=== PATIENT | male | born 1950 | race Caucasian/White ===

== ENCOUNTER 2017-01-05 14:27 | Emergency (ER) | payer SELFPAY ==
[2017-01-05 14:27] VITALS: BMI 29.2
--- NOTE | 2017-01-05 15:15 | ED PDOC ---
HPI: Hypertension/Hypotension Time Seen by Provider: 01/05/17 14:38 Chief Complaint (Nursing): High Blood Pressure Additional History Per: Patient (66 y/o male h/o HTN/DM here with right visual change x 3 months that made him nervous today at 9am. Patient denies any chest pain/sob. Forgot to take antihypertensive (clonidine 0.2mg) today. States he saw opthalmologist last week and was told he has catarracts in right eye. Denies any weakness in upper or lower extremities.) Past Medical History Reviewed: Historical Data, Nursing Documentation, Vital Signs Vital Signs: Last Vital Signs Temp 98.6 F 01/05/17 14:31 Pulse 108 H 01/05/17 14:31 Resp 19 01/05/17 14:31 BP 212/132 H 01/05/17 14:31 Pulse Ox 100 01/05/17 14:31 - Medical History PMH: Anxiety, Diabetes, HTN, TIA Denies: Atrial Fibrillation, CAD, Cardia Arrhythmia, CHF, HIV, Hypercholesterolemia, Hyperthyroidism, Hypothyroidism, Mitral Valve Prolapse, Peripheral Edema, Chronic Kidney Disease - Surgical History Surgical History: Denies: Pacemaker - Family History Family History: States: Unknown Family Hx - Immunization History Hx Tetanus Toxoid Vaccination: No Hx Influenza Vaccination: No Hx Pneumococcal Vaccination: No - Home Medications Home Medications: Ambulatory Orders Medication Instructions Recorded Aspirin [Aspirin Chewable] 81 mg PO DAILY #0 chew 03/25/16 Atorvastatin [Lipitor] 20 mg PO HS #0 tab 03/25/16 GlipiZIDE [Glipizide] 10 mg PO DAILY #20 tab 03/25/16 SITagliptin [Januvia] 100 mg PO DAILY #20 tab 03/25/16 amLODIPine [Norvasc] 10 mg PO DAILY #20 tab 03/25/16 cloNIDine [Catapres] 0.2 mg PO TID #60 03/25/16 metFORMIN [glucOPHAGE] 500 mg PO BID #40 03/25/16 - Allergies Allergies/Adverse Reactions: Allergies Allergy/AdvReac Type Severity Reaction Status Date / Time No Known Allergies Allergy Verified 04/22/15 07:36 Review of Systems ROS Statement: Except As Marked, All Systems Reviewed And Found Negative Physical Exam - Reviewed Nursing Documentation Reviewed: Yes Vital Signs Reviewed: Yes - Physical Exam Appears: Positive for: Well, Non-toxic, No Acute Distress Head Exam: Positive for: ATRAUMATIC, NORMAL INSPECTION, NORMOCEPHALIC Skin: Positive for: Normal Color, Warm, DRY Eye Exam: Positive for: EOMI, Normal appearance, PERRL ENT: Positive for: Normal ENT Inspection Neck: Positive for: Normal, Painless ROM Cardiovascular/Chest: Positive for: Regular Rate, Rhythm Respiratory: Positive for: CNT, Normal Breath Sounds Gastrointestinal/Abdominal: Positive for: Normal Exam, Bowel Sounds, Soft Back: Positive for: Normal Inspection Extremity: Positive for: Normal ROM Neurologic/Psych: Positive for: Alert, Oriented - Laboratory Results Result Diagrams: 01/05/17 15:58 01/05/17 15:58 - ECG O2 Sat by Pulse Oximetry: 100 - Progress ED Course And Treament: REVIEW OF OLD RECORDS DEMONSTRATES OLD INFARCT [place] ON MRI EKG: NSR 96BPM T WAVE INVERSION AVL AND V6 SIMILAR TO OLD EKG CLONIDINE 0.2 MG ATIVAN 0.5 MG IV X 1 DOSE REPEAT BP 207/130 LABETOLOL 20 MG IV X1 DOSE GIVEN. REPEAT BP 155/90 D/W DR. GLASS FOR ADMISSION AND POSSIBLE MRI. UPON RE-EVALUATION, PATIENT'S FAMILY DISCLOSES PATIENT WAS ANXIOUS TODAY B/C OF COST OF POSSIBLE CATARRACT SURGERY AND CAME TO ED HOPING TO HAVE EYE SURGERY DONE. D/W PATIENT F/U OUTPATIENT WITH OPHTHALMOLOGY FOR MANAGEMENT OF SURGERY. WILL GIVE PHONE NUMBER FOR [facility]. PATIENT ADVISED COMPLIANCE OF BP MEDICATIONS. Disposition - Clinical Impression Clinical Impression: Hypertension, Cataract - Patient ED Disposition Is Patient to be Admitted: No - Disposition Disposition: Routine/Home Disposition Time: 19:04 Condition: FAIR Additional Instructions: NEENA JERE [facility] [phone] [place] [address] ([facility]) Instructions: Cataracts (ED), Hypertension (DC) Print Language: HEBREW
--- NOTE | 2017-01-05 15:21 | RAD ---
HISTORY: routine COMPARISON: Chest x-ray performed 03/23/16 TECHNIQUE: Chest, one view. FINDINGS: Examination limited by habitus. LUNGS: No focal consolidation. Please note that chest x-ray has limited sensitivity for the detection of pulmonary masses. PLEURA: No significant pleural effusion identified. No definite pneumothorax . CARDIOVASCULAR: Heart size appears within normal limits. Atherosclerotic calcifications of the aorta. OSSEOUS STRUCTURES: No acute osseous abnormality is detected. VISUALIZED UPPER ABDOMEN: Unremarkable. OTHER FINDINGS: None. IMPRESSION: No focal consolidation, significant pleural effusion, or definite pneumothorax identified.
[2017-01-05 15:38] VITALS: TEMP 98
[2017-01-05] MEDS ORDERED: Labetalol 5 mg/ml Inj 20ML IVP STA (16:12)
[2017-01-05 16:15] LABS: BASO % 0.7 % (0.0-2.0); EOS # 0.1 K/uL (0.0-0.7); EOS % 1.2 % (0.0-4.0); HEMOGLOBIN 16.2 g/dL (12.0-18.0); LYMPH # 2.1 K/uL (1.0-4.3); LYMPH % 41.7 % (20.0-40.0); MEAN CELL VOLUME 78.5 fl (80.0-94.0); MEAN CORPUSCULAR HEMOGLOBIN 25.7 pg (27.0-31.0); MEAN CORPUSCULAR HGB CONC 32.7 g/dL (33.0-37.0); MONO # 0.4 K/uL (0.0-0.8); MONO % 7.8 % (0.0-10.0); NEUT # 2.5 K/uL (1.8-7.0); NEUT % 48.6 % (50.0-75.0); NRBC % 0.1 % (0.0-0.0); RBC 6.29 Mil/uL (4.40-5.90); RED CELL DISTRIBUTION WIDTH 14.7 % (11.5-14.5)
[2017-01-05 16:20] LABS: ALB/GLOB RATIO 1.2 (1.0-2.1); ALBUMIN 4.4 g/dL (3.5-5.0); ALT/SGPT 37 U/L (21-72); AST/SGOT 23 U/L (17-59); BLOOD UREA NITROGEN 18 mg/dl (9-20); CALCIUM 9.7 mg/dL (8.4-10.2); GFR AFRICAN-AMERICAN > 60; GFR NON-AFRICAN AMERICAN > 60
--- NOTE | 2017-01-05 16:21 | CT ---
PROCEDURE: CT HEAD WITHOUT CONTRAST. HISTORY: visual disturbance COMPARISON: Noncontrast head CT performed 03/23/16 TECHNIQUE: Axial computed tomography images were obtained through the head/brain without intravenous contrast. Radiation dose: Total exam DLP = 920.17 mGy-cm. This CT exam was performed using one or more of the following dose reduction techniques: Automated exposure control, adjustment of the mA and/or kV according to patient size, and/or use of iterative reconstruction technique. FINDINGS: HEMORRHAGE: No intracranial hemorrhage. BRAIN: Diffuse atrophy with prominence of the ventricles and sulci noted. No mass effect or edema. Dense intracranial atherosclerosis. 5 mm chronic appearing right basal ganglia lacunar infarct. Scattered periventricular and subcortical white matter hypodensities, which are nonspecific, but often seen with chronic microvascular ischemic disease. Please note that MRI with diffusion imaging is more sensitive in the detection of acute ischemic event. VENTRICLES: No hydrocephalus. CALVARIUM: Unremarkable. PARANASAL SINUSES: Unremarkable as visualized. No significant inflammatory changes. MASTOID AIR CELLS: Unremarkable as visualized. No inflammatory changes. OTHER FINDINGS: None. IMPRESSION: Nonspecific white matter changes. 5 mm chronic appearing right basal ganglia lacunar infarct. Generalized atrophy.
--- NOTE | 2017-01-05 18:32 | CP.PCM.CON ---
History of Present Illness - History of Present Illness History of Present Illness: Reason for Consult: visual changes and hypertension CC: came in because I was nervous HPI: 66 year old male PMH HTN, DMII, GI bleed, peptic ulcer, TIA?, presents after a 4 month history of R visual changes over which he became very nervous this morning. He saw his opthalmologist (brought paperwork) 6 days ago, who informed the patient he would need surgery for diabetic retinopathy. The patient states he is nervous because he does not have insurance and because the surgery is expensive so he came to the hospital. This patient is also known to be noncompliant with his Clonidine which he did not take this morning, and had rebound HTN which was then controlled in the ER with Clonidine his home med and labetalol. Patient was advised to continue his home meds, and to follow up with his printed circuit photographer after his insurance is established. ROS: per HPI, all other systems neg by me PMSH: HTN, DM II, GIB, PEPTIC ULCER, TIA? FH: denies SH: denies tobacco, ETOH, IVDU NKDA EXAM vitals reviewed, bp now stable GEN: WDWN, ALERT COOPERATIVE HEENT: NCAT PERRL EOMI HEART: S1S2 RRR LUNG CTAB NO WRR ABD SOFT NT ND NO MAS NO HSM EXT WARM WELL PERFUSED NEURO AAOX3, STRENGTH EQUAL AND BILATERAL SKIN WARM DRY 01/05/17 15:58 01/05/17 15:58 ASSESSMENT AND PLAN 66 year old male PMH HTN, DMII, GI bleed, peptic ulcer, TIA?, presents after a 4 month history of R visual changes over which he became very nervous this morning. He saw his opthalmologist (brought paperwork) 6 days ago, who informed the patient he would need surgery for diabetic retinopathy. The patient states he is nervous because he does not have insurance and because the surgery is expensive so he came to the hospital. This patient is also known to be noncompliant with his Clonidine which he did not take this morning, and had rebound HTN which was then controlled in the ER with Clonidine his home med and labetalol. Patient was advised to continue his home meds, and to follow up with his printed circuit photographer after his insurance is established. Patient medically stable to be discharged home with extensive counseling on medication compliance as well as counseling on close follow up with [employer] as an outpatient. Past Patient History - Infectious Disease Hx of Infectious Diseases: None - Tetanus Immunizations Tetanus Immunization: Unknown - Past Medical History & Family History Past Medical History?: Yes - Past Social History Smoking Status: Never Smoked - CARDIAC Hx Atrial Fibrillation: No Hx Cardia Arrhythmia: No Hx Congestive Heart Failure: No Hx Hypercholesterolemia: No Hx Hypertension: Yes Hx Mitral Valve Prolapse: No Hx Pacemaker: No Hx Peripheral Edema: No - PULMONARY Hx Respiratory Disorders: No - NEUROLOGICAL Hx Transient Ischemic Attacks (TIA): Yes - HEENT Hx HEENT Problems: No - RENAL Hx Chronic Kidney Disease: No - ENDOCRINE/METABOLIC Hx Hyperthyroidism: No Hx Hypothyroidism: No - HEMATOLOGICAL/ONCOLOGICAL Hx Human Immunodeficiency Virus (HIV): No - INTEGUMENTARY Hx Dermatological Problems: No - MUSCULOSKELETAL/RHEUMATOLOGICAL Hx Musculoskeletal Disorders: No Hx Falls: No - GASTROINTESTINAL Hx Ulcer: Yes Hx Vomiting: Yes Other/Comment: GI bleed, 03/2015 - GENITOURINARY/GYNECOLOGICAL Hx Genitourinary Disorders: No - PSYCHIATRIC Hx Anxiety: Yes - SURGICAL HISTORY Hx Surgeries: No - ANESTHESIA Hx Anesthesia: Yes Hx Anesthesia Reactions: No Hx Malignant Hyperthermia: No Meds Allergies/Adverse Reactions: Allergies Allergy/AdvReac Type Severity Reaction Status Date / Time No Known Allergies Allergy Verified 04/22/15 07:36 Results - Vital Signs Recent Vital Signs: Last Vital Signs Temp 98 F 01/05/17 15:31 Pulse 87 01/05/17 17:52 Resp 18 01/05/17 17:52 BP 159/96 H 01/05/17 17:52 Pulse Ox 99 01/05/17 17:52 - Labs Result Diagrams: 01/05/17 15:58 01/05/17 15:58 Labs: Laboratory Results - last 24 hr 01/05/17 01/05/17 15:58 15:58 WBC 5.0 RBC 6.29 H Hgb 16.2 Hct 49.4 MCV 78.5 L D MCH 25.7 L MCHC 32.7 L RDW 14.7 H Plt Count 214 MPV 10.0 Neut % (Auto) 48.6 L Lymph % (Auto) 41.7 H [place] % (Auto) 7.8 Eos % (Auto) 1.2 Baso % (Auto) 0.7 Neut # 2.5 Lymph # 2.1 [place] # 0.4 Eos # 0.1 Baso # 0.0 Sodium 140 Potassium 4.9 Chloride 105 Carbon Dioxide 23 Anion Gap 17 BUN 18 Creatinine 1.0 Est GFR ( Amer) > 60 Est GFR (Non-Af Amer) > 60 Random Glucose 116 H Calcium 9.7 Total Bilirubin 0.6 AST 23 ALT 37 Alkaline Phosphatase 79 Troponin I < 0.0120 Total Protein 8.0 Albumin 4.4 Globulin 3.7 Albumin/Globulin Ratio 1.2
[2017-01-05 19:21] LABS: SQUAMOUS EPITHIAL < 1 /hpf (0-5); URINE BILIRUBIN NEGATIVE (NEGATIVE); URINE BLOOD NEGATIVE (NEGATIVE); URINE CLARITY CLEAR (Clear); URINE COLOR YELLOW (YELLOW); URINE GLUCOSE (UA) NEG (Normal); URINE LEUKOCYTE ESTERASE NEG Leu/uL (Negative); URINE NITRATE NEGATIVE (NEGATIVE); URINE PROTEIN 100 mg/dL (NEGATIVE); URINE UROBILINOGEN 0.2-1.0 mg/dL (0.2-1.0)
[2017-01-05 19:27] VITALS: BP 153/101; PULSE 92; RESP 16; O2SAT 99
--- NOTE | 2017-01-06 23:40 | CARD ---
APPROVED REPORT EKG Measurement Heart [id number] NM [id number] [id number] <Conclusion> Normal sinus rhythm Possible Left atrial enlargement Nonspecific T wave abnormality Abnormal ECG
== END 2017-01-05 19:28 | disposition home or self-care (01) ==
LOC: H.ER 14:27
DX: I10 Essential (primary) hypertension (principal); H25.10 Age-related nuclear cataract, unspecified eye; E11.9 Type 2 diabetes mellitus without complications; Z86.73 Personal history of transient ischemic attack (TIA), and cerebral infarction without residual deficits
CPT/HCPCS: 70450; 71010; 80053; 81003; 82948; 84484; 85025; 93005; 96374; 96375; 99285; J2060

== ENCOUNTER 2017-08-14 09:55 | Emergency (ER) | payer MEDICAID ==
[2017-08-14 09:55] VITALS: BMI 29.2
--- NOTE | 2017-08-14 11:19 | ED PDOC ---
HPI: Hypertension/Hypotension Time Seen by Provider: 08/14/17 10:18 Chief Complaint (Nursing): High Blood Pressure Chief Complaint (Provider): High blood pressure History Per: Patient History/Exam Limitations: no limitations Onset/Duration Of Symptoms: Hrs (this morning) Current Symptoms Are (Timing): Still Present Associated Symptoms: denies: Chest Pain, Headache, Other (palpitations, SOB,) Additional Complaint(s): Ramon Tai is a 66 year old male, with a past medical history of hypertension and diabetes, who presents to the emergency department for elevated blood pressure onset since this morning. Patient states he took blood pressure medications as normal. He denies any chest pain, palpitations, shortness of breath, headache or dizziness. No further medical complaints. PMD: Chad Coleman Past Medical History Reviewed: Historical Data, Nursing Documentation, Vital Signs Vital Signs: Last Vital Signs Temp 98 F 08/14/17 10:11 Pulse 94 H 08/14/17 10:31 Resp 18 08/14/17 10:11 BP 235/122 H 08/14/17 10:31 Pulse Ox 100 08/14/17 10:11 - Medical History PMH: Anxiety, Diabetes, HTN, TIA Denies: Atrial Fibrillation, CAD, Cardia Arrhythmia, CHF, HIV, Hypercholesterolemia, Hyperthyroidism, Hypothyroidism, Mitral Valve Prolapse, Peripheral Edema, Chronic Kidney Disease - Surgical History Surgical History: No Surg Hx Denies: Pacemaker - Family History Family History: States: Unknown Family Hx - Social History Current smoker - smoking cessation education provided: No Alcohol: None Drugs: Denies - Immunization History Hx Tetanus Toxoid Vaccination: No Hx Influenza Vaccination: No Hx Pneumococcal Vaccination: No - Home Medications Home Medications: Ambulatory Orders Medication Instructions Recorded Aspirin [Aspirin Chewable] 81 mg PO DAILY #0 chew 03/25/16 Atorvastatin [Lipitor] 20 mg PO HS #0 tab 03/25/16 GlipiZIDE [Glipizide] 10 mg PO DAILY #20 tab 03/25/16 SITagliptin [Januvia] 100 mg PO DAILY #20 tab 03/25/16 amLODIPine [Norvasc] 10 mg PO DAILY #20 tab 03/25/16 cloNIDine [Catapres] 0.2 mg PO TID #60 03/25/16 metFORMIN [glucOPHAGE] 500 mg PO BID #40 03/25/16 - Allergies Allergies/Adverse Reactions: Allergies Allergy/AdvReac Type Severity Reaction Status Date / Time No Known Allergies Allergy Verified 04/22/15 07:36 Review of Systems ROS Statement: Except As Marked, All Systems Reviewed And Found Negative Constitutional: Positive for: Other (elevated blood pressure) Cardiovascular: Negative for: Chest Pain, Palpitations Respiratory: Negative for: Shortness of Breath Neurological: Negative for: Headache, Dizziness Physical Exam - Reviewed Nursing Documentation Reviewed: Yes Vital Signs Reviewed: Yes - Physical Exam Appears: Positive for: Non-toxic, No Acute Distress Head Exam: Positive for: ATRAUMATIC, NORMAL INSPECTION, NORMOCEPHALIC Skin: Positive for: Normal Color, Warm, Dry Eye Exam: Positive for: Normal appearance, EOMI, PERRL Neck: Positive for: Painless ROM, Supple Cardiovascular/Chest: Positive for: Regular Rate, Rhythm. Negative for: Murmur Respiratory: Positive for: Normal Breath Sounds (clear b/l). Negative for: Respiratory Distress Gastrointestinal/Abdominal: Positive for: Normal Exam, Soft. Negative for: Tenderness, Guarding, Rebound Back: Positive for: Normal Inspection. Negative for: L CVA Tenderness, R CVA Tenderness, Vertebral Tenderness Extremity: Positive for: Normal ROM. Negative for: Tenderness, Calf Tenderness , Deformity, Swelling Neurologic/Psych: Positive for: Alert, Oriented (x3). Negative for: Motor/ Sensory Deficits, Other (no focal deficits.) - ECG O2 Sat by Pulse Oximetry: 100 (RA) Pulse Ox Interpretation: Normal Medical Decision Making Medical Decision Making: Initial Plan: --EKG --Catapres 0.2 mg PO --Reevaluation Scribe Attestation: Documented by Jude Jeffrey, acting as a scribe for Clifton Mayer MD Provider Scribe Attestation: All medical record entries made by the Scribe were at my direction and personally dictated by me. I have reviewed the chart and agree that the record accurately reflects my personal performance of the history, physical exam, medical decision making, and the department course for this patient. I have also personally directed, reviewed, and agree with the discharge instructions and disposition. Disposition - Clinical Impression Clinical Impression: Hypertension - Patient ED Disposition Is Patient to be Admitted: No Counseled Patient/Family Regarding: Diagnosis, Need For Followup - Disposition Referrals: Chad Coleman MD [Staff Provider] - Disposition: Routine/Home Disposition Time: 14:25 Condition: FAIR Instructions: High Blood Pressure in Adults Forms: [facility] (Belizean) Print Language: THAI
[2017-08-14 13:45] VITALS: PULSE 80; RESP 16; TEMP 98.4
[2017-08-14 15:08] VITALS: BP 140/90; O2SAT 99
--- NOTE | 2017-08-15 23:49 | CARD ---
APPROVED REPORT EKG Measurement Heart [id number] 140P74 [id number] <Conclusion> Sinus rhythm with occasional premature ventricular complexes Possible Left atrial enlargement Nonspecific T wave abnormality Abnormal ECG
== END 2017-08-14 15:08 | disposition home or self-care (01) ==
LOC: H.ER 09:55
DX: I10 Essential (primary) hypertension (principal); E11.9 Type 2 diabetes mellitus without complications; F41.9 Anxiety disorder, unspecified; Z79.84 Long term (current) use of oral hypoglycemic drugs; Z86.73 Personal history of transient ischemic attack (TIA), and cerebral infarction without residual deficits

== ENCOUNTER 2017-08-14 15:28 | Emergency (ER) | payer MEDICAID ==
[2017-08-14 15:29] VITALS: BMI 29.2
[2017-08-14 15:36] VITALS: O2SAT 98
[2017-08-14 16:53] LABS: BASO # 0.1 K/uL (0.0-0.2); EOS # 0.1 K/uL (0.0-0.7); EOS % 1.2 % (0.0-4.0); LYMPH # 1.8 K/uL (1.0-4.3); LYMPH % 32.4 % (20.0-40.0); MEAN CELL VOLUME 74.9 fl (80.0-94.0); MEAN CORPUSCULAR HEMOGLOBIN 24.1 pg (27.0-31.0); MEAN CORPUSCULAR HGB CONC 32.2 g/dL (33.0-37.0); MEAN PLATELET VOLUME 9.8 fl (7.2-11.7); MONO # 0.5 K/uL (0.0-0.8); MONO % 9.5 % (0.0-10.0); NEUT % 55.9 % (50.0-75.0); RBC 6.24 Mil/uL (4.40-5.90); RED CELL DISTRIBUTION WIDTH 16.7 % (11.5-14.5); WHITE BLOOD COUNT 5.4 K/uL (4.8-10.8)
--- NOTE | 2017-08-14 16:56 | ED PDOC ---
HPI: Hypertension/Hypotension Time Seen by Provider: 08/14/17 15:30 Chief Complaint (Nursing): Weakness/Neurological Deficit Chief Complaint (Provider): Weakness/neurological deficit History Per: Patient History/Exam Limitations: no limitations Onset/Duration Of Symptoms: Hrs (today) Current Symptoms Are (Timing): Gone Now Associated Symptoms: Blurred Vision, Other (generalized weakness. ) Additional Complaint(s): Ramon Tai is a 66 year old male, with a past medical history of hypertension and diabetes, who presents to the emergency department after he was just discharged this afternoon from here for hypertension. Patient states as soon as he left, he began having blurry vision but has now resolved. He denies any fever , chills, nausea, vomit, diarrhea or other medical complaints. PMD: None provided. Past Medical History Reviewed: Historical Data, Nursing Documentation, Vital Signs Vital Signs: Last Vital Signs Temp 98.7 F 08/14/17 15:33 Pulse 105 H 08/14/17 15:33 Resp 16 08/14/17 15:33 BP 143/83 08/14/17 15:33 Pulse Ox 98 08/14/17 15:33 - Medical History PMH: Anxiety, Diabetes, HTN, TIA Denies: Atrial Fibrillation, CAD, Cardia Arrhythmia, CHF, HIV, Hypercholesterolemia, Hyperthyroidism, Hypothyroidism, Mitral Valve Prolapse, Peripheral Edema, Chronic Kidney Disease - Surgical History Surgical History: No Surg Hx Denies: Pacemaker - Family History Family History: States: Unknown Family Hx - Social History Current smoker - smoking cessation education provided: No Alcohol: None Drugs: Denies - Immunization History Hx Tetanus Toxoid Vaccination: No Hx Influenza Vaccination: No Hx Pneumococcal Vaccination: No - Home Medications Home Medications: Ambulatory Orders Medication Instructions Recorded Aspirin [Aspirin Chewable] 81 mg PO DAILY #0 chew 03/25/16 Atorvastatin [Lipitor] 20 mg PO HS #0 tab 03/25/16 GlipiZIDE [Glipizide] 10 mg PO DAILY #20 tab 03/25/16 SITagliptin [Januvia] 100 mg PO DAILY #20 tab 03/25/16 amLODIPine [Norvasc] 10 mg PO DAILY #20 tab 03/25/16 cloNIDine [Catapres] 0.2 mg PO TID #60 03/25/16 metFORMIN [glucOPHAGE] 500 mg PO BID #40 03/25/16 - Allergies Allergies/Adverse Reactions: Allergies Allergy/AdvReac Type Severity Reaction Status Date / Time No Known Allergies Allergy Verified 08/14/17 15:33 Review of Systems ROS Statement: Except As Marked, All Systems Reviewed And Found Negative Constitutional: Negative for: Fever, Chills Eyes: Positive for: Vision Change (blurry vision) Gastrointestinal: Negative for: Nausea, Vomiting, Diarrhea Physical Exam - Reviewed Nursing Documentation Reviewed: Yes Vital Signs Reviewed: Yes - Physical Exam Appears: Positive for: Well, Non-toxic, No Acute Distress Head Exam: Positive for: ATRAUMATIC, NORMAL INSPECTION, NORMOCEPHALIC Skin: Positive for: Normal Color, Warm, Dry Eye Exam: Positive for: Normal appearance, EOMI, PERRL Neck: Positive for: Painless ROM, Supple Cardiovascular/Chest: Positive for: Regular Rate, Rhythm. Negative for: Murmur Respiratory: Positive for: Normal Breath Sounds (clear b/l). Negative for: Respiratory Distress Gastrointestinal/Abdominal: Positive for: Normal Exam, Soft. Negative for: Tenderness, Guarding, Rebound Back: Positive for: Normal Inspection. Negative for: L CVA Tenderness, R CVA Tenderness, Vertebral Tenderness Extremity: Positive for: Normal ROM (full ROM on all extremities). Negative for : Tenderness, Deformity, Swelling Neurologic/Psych: Positive for: Alert, Oriented (x3). Negative for: Motor/ Sensory Deficits - Laboratory Results Result Diagrams: 08/14/17 16:44 08/14/17 16:44 - ECG O2 Sat by Pulse Oximetry: 98 (RA) Pulse Ox Interpretation: Normal Medical Decision Making Medical Decision Making: Initial Impression: hypertension Initial Plan: --Head w/o contrast [CT] --CMP --CBC w/ differential --Reevaluation Time: 17:05 CT HEAD FINDINGS: HEMORRHAGE: No intracranial hemorrhage. BRAIN: No mass effect or edema. Mild cerebral atrophy. Mild chronic periventricular white matter microvascular ischemic changes. Lacunar infarctions in the genu of the right internal capsule and right thalamus. VENTRICLES: Unremarkable. No hydrocephalus. CALVARIUM: Unremarkable. PARANASAL SINUSES: Leftward nasal septal deviation. Unremarkable as visualized. No significant inflammatory changes. MASTOID AIR CELLS: Unremarkable as visualized. No inflammatory changes. OTHER FINDINGS: None. IMPRESSION: No acute intracranial pathology. Time: 19:05 Upon provider reevaluation patient feels better and visual acuity was assessed as normal. Labs were reviewed and patient was made aware that blood sugar is high and will take medication at home. BP is stable. Counseling was provided and all questions were answered regarding diagnosis and need for follow up with PMD in 1-2 days for reevaluation. There is agreement to discharge plan. Return if symptoms persist or worsen. Scribe Attestation: Documented by Jude Jeffrey and Lawrence Eddy, acting as scribes for Jose Delacruz MD. Provider Scribe Attestation: All medical record entries made by the Scribe were at my direction and personally dictated by me. I have reviewed the chart and agree that the record accurately reflects my personal performance of the history, physical exam, medical decision making, and the department course for this patient. I have also personally directed, reviewed, and agree with the discharge instructions and disposition. Disposition - Clinical Impression Clinical Impression: Hypertension - Patient ED Disposition Is Patient to be Admitted: No Counseled Patient/Family Regarding: Studies Performed, Diagnosis, Need For Followup - Disposition Disposition: Routine/Home Disposition Time: 17:35 Condition: IMPROVED Additional Instructions: follow up with your primary doctor in 1-2 days return to the ED with any worsening or concerning symptoms Instructions: High Blood Pressure (DC) Forms: [facility] [employer] (Romanian) Print Language: VATICAN CITIZEN
[2017-08-14 17:01] LABS: CALCIUM 9.2 mg/dL (8.4-10.2); GFR AFRICAN-AMERICAN > 60; GFR NON-AFRICAN AMERICAN > 60
--- NOTE | 2017-08-14 17:06 | CT ---
PROCEDURE: CT HEAD WITHOUT CONTRAST. HISTORY: headache COMPARISON: CT head dated 01/05/2017. TECHNIQUE: Axial computed tomography images were obtained through the head/brain without intravenous contrast. Radiation dose: Total exam DLP = 927.2 mGy-cm. This CT exam was performed using one or more of the following dose reduction techniques: Automated exposure control, adjustment of the mA and/or kV according to patient size, and/or use of iterative reconstruction technique. FINDINGS: HEMORRHAGE: No intracranial hemorrhage. BRAIN: No mass effect or edema. Mild cerebral atrophy. Mild chronic periventricular white matter microvascular ischemic changes. Lacunar infarctions in the genu of the right internal capsule and right thalamus. VENTRICLES: Unremarkable. No hydrocephalus. CALVARIUM: Unremarkable. PARANASAL SINUSES: Leftward nasal septal deviation. Unremarkable as visualized. No significant inflammatory changes. MASTOID AIR CELLS: Unremarkable as visualized. No inflammatory changes. OTHER FINDINGS: None. IMPRESSION: No acute intracranial pathology.
[2017-08-14 17:34] LABS: ALB/GLOB RATIO 1.1 (1.0-2.1); ALBUMIN 3.9 g/dL (3.5-5.0); ALT/SGPT 12 U/L (21-72); AST/SGOT 42 U/L (17-59); BLOOD UREA NITROGEN 17 mg/dl (9-20)
[2017-08-14 19:18] VITALS: BP 134/90; PULSE 70; RESP 18; TEMP 98
== END 2017-08-14 19:19 | disposition home or self-care (01) ==
LOC: H.ER 15:28
DX: I10 Essential (primary) hypertension (principal); E11.9 Type 2 diabetes mellitus without complications; F41.9 Anxiety disorder, unspecified; Z79.82 Long term (current) use of aspirin; Z79.84 Long term (current) use of oral hypoglycemic drugs; Z86.73 Personal history of transient ischemic attack (TIA), and cerebral infarction without residual deficits

== ENCOUNTER 2017-12-02 12:50 | Observation (INO) | payer MEDICAID ==
[2017-12-02 12:50] VITALS: BMI 29.2
[2017-12-02] MEDS ORDERED: Labetalol 5 mg/ml Inj 20ML IVP STA (13:30)
[2017-12-02 13:57] LABS: BASO % 0.3 % (0.0-2.0); EOS # 0.1 K/uL (0.0-0.7); EOS % 0.7 % (0.0-4.0); HEMOGLOBIN 15.3 g/dL (12.0-18.0); LYMPH # 1.4 K/uL (1.0-4.3); LYMPH % 17.9 % (20.0-40.0); MEAN CELL VOLUME 78.8 fl (80.0-94.0); MEAN CORPUSCULAR HEMOGLOBIN 25.5 pg (27.0-31.0); MEAN CORPUSCULAR HGB CONC 32.4 g/dL (33.0-37.0); MEAN PLATELET VOLUME 10.2 fl (7.2-11.7); MONO # 0.3 K/uL (0.0-0.8); MONO % 4.3 % (0.0-10.0); NEUT # 6.1 K/uL (1.8-7.0); NEUT % 76.8 % (50.0-75.0); RBC 6.01 Mil/uL (4.40-5.90); RED CELL DISTRIBUTION WIDTH 14.7 % (11.5-14.5); WHITE BLOOD COUNT 7.9 K/uL (4.8-10.8)
[2017-12-02 14:07] LABS: ALB/GLOB RATIO 1.4 (1.0-2.1); ALBUMIN 4.3 g/dL (3.5-5.0); ALT/SGPT 31 U/L (21-72); AST/SGOT 18 U/L (17-59); BLOOD UREA NITROGEN 15 mg/dl (9-20); CALCIUM 9.4 mg/dL (8.4-10.2); GFR AFRICAN-AMERICAN > 60; GFR NON-AFRICAN AMERICAN > 60
--- NOTE | 2017-12-02 14:21 | ED PDOC ---
HPI: Hypertension/Hypotension History Per: Patient History/Exam Limitations: no limitations Onset/Duration Of Symptoms: Hrs Current Symptoms Are (Timing): Gone Now Additional Complaint(s): 67 y/o male with PMHx of HTN, and DM type 2 presents to ED via EMS with elevated BP. Patient states that this morning he forgot to take his BP medications, and hours later he started feeling dizzy, nauseated, and had 3 episodes of non bloody, no bilious emesis, then called 911. At the time of arrival patient was awake, alert, and denies any headaches, dizziness, chest pain, SOB, blurry vision, facial droop, tingling, numbness, or weakness. Patient states that his BP is always uncontrolled, even taking his medications his BP is elevated. Has poor f/u with PMD due to work scheduled. PMD: Magdiel Coleman <Gaviota Humphrey - Last Filed: 12/02/17 16:19> <Jose Delacruz - Last Filed: 12/04/17 06:45> Time Seen by Provider: 12/02/17 13:08 Chief Complaint (Nursing): High Blood Pressure Past Medical History Vital Signs: Last Vital Signs Temp 98.6 F 12/02/17 12:51 Pulse 99 H 12/02/17 14:00 Resp 18 12/02/17 12:51 BP 220/129 H 12/02/17 12:51 Pulse Ox 100 12/02/17 12:51 - Medical History PMH: Anxiety, Diabetes, HTN, TIA Denies: Atrial Fibrillation, CAD, Cardia Arrhythmia, CHF, HIV, Hypercholesterolemia, Hyperthyroidism, Hypothyroidism, Mitral Valve Prolapse, Peripheral Edema, Chronic Kidney Disease - Surgical History Surgical History: Denies: Pacemaker - Family History Family History: States: Unknown Family Hx - Immunization History Hx Tetanus Toxoid Vaccination: No Hx Influenza Vaccination: No Hx Pneumococcal Vaccination: No <Gaviota Humphrey - Last Filed: 12/02/17 16:19> Vital Signs: Last Vital Signs Temp 98.6 F 12/02/17 12:51 Pulse 86 12/02/17 14:45 Resp 20 12/02/17 14:45 BP 181/105 H 12/02/17 14:45 Pulse Ox 100 12/02/17 14:46 <Nubia,Haviva Y - Last Filed: 12/04/17 06:45> - Home Medications Home Medications: Ambulatory Orders Medication Instructions Recorded Valsartan/Hydrochlorothiazide 1 tab PO DAILY 12/02/17 [Diovan Hct 320-25 mg Tablet] Aspirin [Adult Aspirin] 81 mg PO DAILY #30 tablet. 12/03/17 MetFORMIN [glucoPHAGE] 1,000 mg PO BIDWM tab 12/03/17 Metoprolol Tartrate [Lopressor] 100 mg PO Q12 #60 tab 12/03/17 Metoprolol Tartrate [Lopressor] 100 mg PO Q12 #90 tab 12/03/17 Rosuvastatin Calcium 20 mg PO DAILY #30 tablet 12/03/17 SITagliptin [Januvia] 100 mg PO DAILY #30 tab 12/03/17 Zolpidem [Ambien] 5 mg PO DAILY #30 tab 12/03/17 hydrALAZINE [Apresoline] 25 mg PO Q8 #90 tab 12/03/17 - Allergies Allergies/Adverse Reactions: Allergies Allergy/AdvReac Type Severity Reaction Status Date / Time No Known Allergies Allergy Verified 08/14/17 15:33 Review of Systems ROS Statement: Except As Marked, All Systems Reviewed And Found Negative (as per HPI) <Gaviota Humphrey - Last Filed: 12/02/17 16:19> Physical Exam - Reviewed Nursing Documentation Reviewed: Yes Vital Signs Reviewed: Yes - Physical Exam Appears: Positive for: Non-toxic, No Acute Distress Head Exam: Positive for: ATRAUMATIC, NORMOCEPHALIC Skin: Positive for: Normal Color, Warm, Dry Neck: Positive for: Normal, Supple Cardiovascular/Chest: Positive for: Regular Rate, Rhythm, Tachycardia. Negative for: Chest Non Tender, Edema, Murmur Respiratory: Positive for: Normal Breath Sounds. Negative for: Decreased Breath Sounds, Accessory Muscle Use, Crackles, Rales, Rhonchi, Stridor, Wheezing , Respiratory Distress Gastrointestinal/Abdominal: Positive for: Bowel Sounds, Soft. Negative for: Tenderness, Mass, Distended, Guarding, Rebound Back: Positive for: Normal Inspection. Negative for: L CVA Tenderness, R CVA Tenderness Extremity: Negative for: Pedal Edema, Calf Tenderness Neurologic/Psych: Positive for: Alert, tomato grader II-XII (grossly normal), Oriented, Mood/Affect (normal). Negative for: Motor/Sensory Deficits, Aphasia, Facial Droop <Gaviota Humphrey - Last Filed: 12/02/17 16:19> - Laboratory Results Result Diagrams: 12/02/17 13:51 12/02/17 13:51 - ECG O2 Sat by Pulse Oximetry: 100 <Gaviota Humphrey - Last Filed: 12/02/17 16:19> - Laboratory Results Result Diagrams: 12/02/17 13:51 12/02/17 13:51 <Jose Delacruz - Last Filed: 12/04/17 06:45> Medical Decision Making Medical Decision Making: Re-evaluation -Head CT scan w/o contrast reported as no evidence of acute intracraneal pathology -BP still elevated and patient is c/o weakness, and dizziness in standing position -Spoke with Dr. Fountain, and verbal orders were given to resume his home Diovan Hctz 320/25, start Metoprolol T 100 mg BID, and Hydralazine 25 mg PO Q8 ( to give hydralazine if BP >140/90), check morning labs, and renal ultrasound. -Case discussed with Dr. Delacruz, and Dr. Fountain <Gaviota Humphrey - Last Filed: 12/02/17 16:19> Medical Decision Making: Time; 15:50 --Saw patient with resident. He has history of uncontrolled hypertension. Blood pressure was difficult to control in Er. --Will be admitted to obs/tele to Dr. Jaya Fountain. <Jose Delacruz - Last Filed: 12/04/17 06:45> Disposition - Patient ED Disposition Is Patient to be Admitted: Yes Discussed With : Joes Delacruz - Disposition Disposition Time: 16:20 <Gaviota Humphrey - Last Filed: 12/02/17 16:19> <Jose Delacruz - Last Filed: 12/04/17 06:45> - Clinical Impression Clinical Impression: Uncontrolled hypertension - Disposition Condition: STABLE
--- NOTE | 2017-12-02 14:39 | CT ---
PROCEDURE: CT HEAD WITHOUT CONTRAST. HISTORY: vomiting COMPARISON: CT head dated 08/14/2017. TECHNIQUE: Axial computed tomography images were obtained through the head/brain without intravenous contrast. Radiation dose: Total exam DLP = 886.8 mGy-cm. This CT exam was performed using one or more of the following dose reduction techniques: Automated exposure control, adjustment of the mA and/or kV according to patient size, and/or use of iterative reconstruction technique. FINDINGS: HEMORRHAGE: No intracranial hemorrhage. BRAIN: No mass effect or edema. Mild cerebral atrophy. Mild chronic periventricular white matter microvascular ischemic changes. 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 No hydrocephalus. CALVARIUM: Unremarkable. PARANASAL SINUSES: Leftward nasal septal deviation Unremarkable as visualized. No significant inflammatory changes. MASTOID AIR CELLS: Unremarkable as visualized. No inflammatory changes. OTHER FINDINGS: None. IMPRESSION: No acute intracranial pathology.
[2017-12-02] MEDS ORDERED: Patient's Own Med (Valsartan/Hydrochlorothiazide [Diovan Hct 320-25 Mg Tablet] 1 TAB) PO SCH (16:15)
[2017-12-03 05:33] LABS: HDL CHOLESTEROL 22 MG/DL (30-70)
[2017-12-03 05:43] LABS: LDL CHOLESTEROL 122 mg/dL (0-129)
--- NOTE | 2017-12-03 11:38 | CARD ---
APPROVED REPORT EKG Measurement Heart [id number] <Conclusion> Sinus tachycardia Possible Left atrial enlargement Nonspecific T wave abnormality Abnormal ECG
--- NOTE | 2017-12-03 11:58 | CP.PCM.HP ---
History of Present Illness - History of Present Illness History of Present Illness: This is a 67 y/o male with hx of HTN and DM 2 was admitted for accelerated HTN with associated headache and vomiting. He denies any chest pain or SOB Claims that he did not take his medications in the morning and started having symptoms hence called 911. Initial labs showed negative for troponin and normal EKG. Present on Admission - Present on Admission Any Indicators Present on Admission: No History of DVT/PE: No History of Uncontrolled Diabetes: No Urinary Catheter: No Decubitus Ulcer Present: No Review of Systems - Constitutional Constitutional: Headache Past Patient History - Infectious Disease Hx of Infectious Diseases: None - Tetanus Immunizations Tetanus Immunization: Unknown - Past Medical History & Family History Past Medical History?: Yes - Past Social History Smoking Status: Never Smoked - CARDIAC Hx Cardiac Disorders: Yes (HTN) - PULMONARY Hx Respiratory Disorders: No - NEUROLOGICAL Hx Neurological Disorder: Yes (TIA) - HEENT Hx HEENT Problems: No - RENAL Hx Chronic Kidney Disease: No - ENDOCRINE/METABOLIC Hx Endocrine Disorders: Yes (DM) - HEMATOLOGICAL/ONCOLOGICAL Hx Human Immunodeficiency Virus (HIV): No - INTEGUMENTARY Hx Dermatological Problems: No - MUSCULOSKELETAL/RHEUMATOLOGICAL Hx Musculoskeletal Disorders: No Hx Falls: No - GASTROINTESTINAL Hx Ulcer: Yes Hx Vomiting: Yes Other/Comment: GI bleed, 03/2015 - GENITOURINARY/GYNECOLOGICAL Hx Genitourinary Disorders: No - PSYCHIATRIC Hx Psychophysiologic Disorder: Yes Hx Substance Use: No - SURGICAL HISTORY Hx Surgeries: No - ANESTHESIA Hx Anesthesia: Yes Hx Anesthesia Reactions: No Hx Malignant Hyperthermia: No Meds Home Medications: Home Medication List Medication Instructions Recorded Confirmed Type Aspirin [Adult Aspirin] 81 mg PO DAILY #30 tablet. 12/03/17 Rx MetFORMIN [glucoPHAGE] 1,000 mg PO BIDWM tab 12/03/17 Rx Metoprolol Tartrate [Lopressor] 100 mg PO Q12 #60 tab 12/03/17 Rx Rosuvastatin Calcium 20 mg PO DAILY #30 tablet 12/03/17 Rx SITagliptin [Januvia] 100 mg PO DAILY #30 tab 12/03/17 Rx Zolpidem [Ambien] 5 mg PO DAILY #30 tab 12/03/17 Rx hydrALAZINE [Apresoline] 25 mg PO Q8 #90 tab 12/03/17 Rx Allergies/Adverse Reactions: Allergies Allergy/AdvReac Type Severity Reaction Status Date / Time No Known Allergies Allergy Verified 08/14/17 15:33 Physical Exam - Head Exam Head Exam: NORMAL INSPECTION - Eye Exam Eye Exam: Normal appearance - ENT Exam ENT Exam: Mucous Membranes Moist - Respiratory Exam Respiratory Exam: NORMAL BREATHING PATTERN - Cardiovascular Exam Cardiovascular Exam: REGULAR RHYTHM - GI/Abdominal Exam GI & Abdominal Exam: Normal Bowel Sounds - Neurological Exam Neurological exam: CN II-XII Intact, Oriented x3 Results - Vital Signs Recent Vital Signs: Last Vital Signs Temp 98.4 F 12/03/17 07:39 Pulse 79 12/03/17 07:39 Resp 18 12/03/17 07:39 BP 176/107 H 12/03/17 11:36 Pulse Ox 97 12/03/17 07:39 - Labs Result Diagrams: 12/02/17 13:51 12/02/17 13:51 Labs: Laboratory Results - last 24 hr 12/02/17 12/02/17 12/02/17 13:02 13:51 13:51 WBC 7.9 RBC 6.01 H Hgb 15.3 Hct 47.4 MCV 78.8 L D MCH 25.5 L MCHC 32.4 L RDW 14.7 H Plt Count 200 MPV 10.2 Neut % (Auto) 76.8 H Lymph % (Auto) 17.9 L [place] % (Auto) 4.3 Eos % (Auto) 0.7 Baso % (Auto) 0.3 Neut # (Auto) 6.1 Lymph # (Auto) 1.4 [place] # (Auto) 0.3 Eos # (Auto) 0.1 Baso # (Auto) 0.0 Sodium 141 Potassium 4.5 Chloride 100 Carbon Dioxide 28 Anion Gap 18 BUN 15 Creatinine 0.9 Est GFR ( Amer) > 60 Est GFR (Non-Af Amer) > 60 POC Glucose (mg/dL) 185 H Random Glucose 204 H Calcium 9.4 Total Bilirubin 0.4 AST 18 ALT 31 Alkaline Phosphatase 93 Troponin I Total Protein 7.5 Albumin 4.3 Globulin 3.2 Albumin/Globulin Ratio 1.4 Triglycerides Cholesterol LDL Cholesterol Direct HDL Cholesterol TSH 3rd Generation 12/02/17 12/02/17 12/03/17 17:50 21:16 04:20 WBC RBC Hgb Hct MCV MCH MCHC RDW Plt Count MPV Neut % (Auto) Lymph % (Auto) [place] % (Auto) Eos % (Auto) Baso % (Auto) Neut # (Auto) Lymph # (Auto) [place] # (Auto) Eos # (Auto) Baso # (Auto) Sodium Potassium Chloride Carbon Dioxide Anion Gap BUN Creatinine Est GFR ( Amer) Est GFR (Non-Af Amer) POC Glucose (mg/dL) 237 H 179 H Random Glucose Calcium Total Bilirubin AST ALT Alkaline Phosphatase Troponin I < 0.0120 Total Protein Albumin Globulin Albumin/Globulin Ratio Triglycerides 151 H Cholesterol 175 LDL Cholesterol Direct 122 HDL Cholesterol 22 L TSH 3rd Generation 1.18 12/03/17 12/03/17 05:25 11:26 WBC RBC Hgb Hct MCV MCH MCHC RDW Plt Count MPV Neut % (Auto) Lymph % (Auto) [place] % (Auto) Eos % (Auto) Baso % (Auto) Neut # (Auto) Lymph # (Auto) [place] # (Auto) Eos # (Auto) Baso # (Auto) Sodium Potassium Chloride Carbon Dioxide Anion Gap BUN Creatinine Est GFR ( Amer) Est GFR (Non-Af Amer) POC Glucose (mg/dL) 150 H 236 H Random Glucose Calcium Total Bilirubin AST ALT Alkaline Phosphatase Troponin I Total Protein Albumin Globulin Albumin/Globulin Ratio Triglycerides Cholesterol LDL Cholesterol Direct HDL Cholesterol TSH 3rd Generation Assessment & Plan (1) Uncontrolled hypertension Status: Acute (2) Diabetes mellitus Status: Acute - Assessment and Plan (Free Text) Plan: start Carvedilol valsartan and hydralazine start Metformin Start Januvia check a1c cmp lipid serial troponin daily ekg
--- NOTE | 2017-12-03 12:11 | CP.PCM.DIS ---
Provider - Provider Date of Admission: 12/02/17 15:47 Attending physician: Jaya Fountain MD Time Spent in preparation of Discharge (in minutes): 30 Diagnosis - Discharge Diagnosis (1) Uncontrolled hypertension Status: Acute (2) Diabetes mellitus Status: Acute Hospital Course - Lab Results Lab Results: Most Recent Lab Values WBC 7.9 K/uL (4.8-10.8) 12/02/17 13:51 RBC 6.01 Mil/uL (4.40-5.90) H 12/02/17 13:51 Hgb 15.3 g/dL (12.0-18.0) 12/02/17 13:51 Hct 47.4 % (35.0-51.0) 12/02/17 13:51 MCV 78.8 fl (80.0-94.0) L D 12/02/17 13:51 MCH 25.5 pg (27.0-31.0) L 12/02/17 13:51 MCHC 32.4 g/dL (33.0-37.0) L 12/02/17 13:51 RDW 14.7 % (11.5-14.5) H 12/02/17 13:51 Plt Count 200 K/uL (130-400) 12/02/17 13:51 MPV 10.2 fl (7.2-11.7) 12/02/17 13:51 Neut % (Auto) 76.8 % (50.0-75.0) H 12/02/17 13:51 Lymph % (Auto) 17.9 % (20.0-40.0) L 12/02/17 13:51 [place] % (Auto) 4.3 % (0.0-10.0) 12/02/17 13:51 Eos % (Auto) 0.7 % (0.0-4.0) 12/02/17 13:51 Baso % (Auto) 0.3 % (0.0-2.0) 12/02/17 13:51 Neut # (Auto) 6.1 K/uL (1.8-7.0) 12/02/17 13:51 Lymph # (Auto) 1.4 K/uL (1.0-4.3) 12/02/17 13:51 [place] # (Auto) 0.3 K/uL (0.0-0.8) 12/02/17 13:51 Eos # (Auto) 0.1 K/uL (0.0-0.7) 12/02/17 13:51 Baso # (Auto) 0.0 K/uL (0.0-0.2) 12/02/17 13:51 Sodium 141 mmol/l (132-148) 12/02/17 13:51 Potassium 4.5 MMOL/L (3.6-5.0) 12/02/17 13:51 Chloride 100 mmol/L (98-107) 12/02/17 13:51 Carbon Dioxide 28 mmol/L (22-30) 12/02/17 13:51 Anion Gap 18 (10-20) 12/02/17 13:51 BUN 15 mg/dl (9-20) 12/02/17 13:51 Creatinine 0.9 mg/dl (0.8-1.5) 12/02/17 13:51 Est GFR ( Amer) > 60 12/02/17 13:51 Est GFR (Non-Af Amer) > 60 12/02/17 13:51 POC Glucose (mg/dL) 236 mg/dL (65-110) H 12/03/17 11:26 Random Glucose 204 mg/dL (75-110) H 12/02/17 13:51 Calcium 9.4 mg/dL (8.4-10.2) 12/02/17 13:51 Total Bilirubin 0.4 mg/dl (0.2-1.3) 12/02/17 13:51 AST 18 U/L (17-59) 12/02/17 13:51 ALT 31 U/L (21-72) 12/02/17 13:51 Alkaline Phosphatase 93 U/L (38-126) 12/02/17 13:51 Troponin I < 0.0120 ng/mL (0.00-0.120) 12/03/17 04:20 Total Protein 7.5 G/DL (6.3-8.2) 12/02/17 13:51 Albumin 4.3 g/dL (3.5-5.0) 12/02/17 13:51 Globulin 3.2 gm/dL (2.2-3.9) 12/02/17 13:51 Albumin/Globulin Ratio 1.4 (1.0-2.1) 12/02/17 13:51 Triglycerides 151 mg/DL (0-149) H 12/03/17 04:20 Cholesterol 175 mg/dL (0-199) 12/03/17 04:20 LDL Cholesterol Direct 122 mg/dL (0-129) 12/03/17 04:20 HDL Cholesterol 22 MG/DL (30-70) L 12/03/17 04:20 TSH 3rd Generation 1.18 mIU/ML (0.46-4.68) 12/03/17 04:20 - Hospital Course Hospital Course: This is a 67 y/o male admitted for uncontrolled HTN associated with vomiting and headaches. He was placed on hydralazine valsartan and metoprolol. EKG and troponins are WNL. He was discharged in stable condition and advised to follow up with his PMD DR Chad Coleman. Discharge Exam - Head Exam Head Exam: NORMAL INSPECTION - Eye Exam Eye Exam: Normal appearance - Respiratory Exam Respiratory Exam: NORMAL BREATHING PATTERN - GI/Abdominal Exam GI & Abdominal Exam: Normal Bowel Sounds - Neurological Exam Neurological exam: CN II-XII Intact, Oriented x3 - Psychiatric Exam Psychiatric exam: Normal Mood Discharge Plan - Discharge Medications Prescriptions: Aspirin [Adult Aspirin] 81 mg PO DAILY #30 tablet. Zolpidem [Ambien] 5 mg PO DAILY #30 tab hydrALAZINE [Apresoline] 25 mg PO Q8 #90 tab SITagliptin [Januvia] 100 mg PO DAILY #30 tab Metoprolol Tartrate [Lopressor] 100 mg PO Q12 #60 tab Rosuvastatin Calcium 20 mg PO DAILY #30 tablet - Follow Up Plan Condition: STABLE Disposition: HOME/ ROUTINE Additional Instructions: follow up with PMD in 1 week
--- NOTE | 2017-12-03 14:53 | US ---
PROCEDURE: Ultrasound of the Kidneys HISTORY: uncontrolled HBP COMPARISON: None available. TECHNIQUE: Sonogram of the kidneys. FINDINGS: Aorta peak systolic velocity 99 cm/sec. RIGHT KIDNEY: Measures: 12.7 cm. Normal in size, contour and echogenicity. No calculus or hydronephrosis. Exophytic lower pole cortical cyst, 2.2 x 2.4 x 2.6 cm. No other mass. Peak systolic velocity: Proximal: 153 cm/sec Mid: 80 cm/sec Distal: 81 centimeters/second RAR: 1.6 Normal duplex Doppler waveform LEFT KIDNEY: Measures: 12.1 cm. Normal in size, contour and echogenicity. No stone, solid mass lesion or hydronephrosis visualized. Peak systolic velocity: Proximal: 171 cm/sec Mid: 179 centimeter/second Distal: 69 cm/sec RAR: 1.72 Normal duplex Doppler waveform OTHER FINDINGS: None. IMPRESSION: No sonographic evidence of renal arterial stenosis.
[2017-12-03 21:15] VITALS: RESP 18
[2017-12-04 09:07] VITALS: O2SAT 98
[2017-12-04 11:55] VITALS: BP 140/83; PULSE 93; TEMP 98.6
--- NOTE | 2017-12-04 13:45 | CP.PCM.DIS ---
Provider - Provider Date of Admission: 12/02/17 15:47 Attending physician: Jaya Fountain MD Time Spent in preparation of Discharge (in minutes): 15 Diagnosis - Discharge Diagnosis (1) Hypertensive urgency Status: Acute (2) Hypertension Status: Chronic (3) DM2 (diabetes mellitus, type 2) Status: Chronic Hospital Course - Lab Results Lab Results: Most Recent Lab Values WBC 7.9 K/uL (4.8-10.8) 12/02/17 13:51 RBC 6.01 Mil/uL (4.40-5.90) H 12/02/17 13:51 Hgb 15.3 g/dL (12.0-18.0) 12/02/17 13:51 Hct 47.4 % (35.0-51.0) 12/02/17 13:51 MCV 78.8 fl (80.0-94.0) L D 12/02/17 13:51 MCH 25.5 pg (27.0-31.0) L 12/02/17 13:51 MCHC 32.4 g/dL (33.0-37.0) L 12/02/17 13:51 RDW 14.7 % (11.5-14.5) H 12/02/17 13:51 Plt Count 200 K/uL (130-400) 12/02/17 13:51 MPV 10.2 fl (7.2-11.7) 12/02/17 13:51 Neut % (Auto) 76.8 % (50.0-75.0) H 12/02/17 13:51 Lymph % (Auto) 17.9 % (20.0-40.0) L 12/02/17 13:51 [place] % (Auto) 4.3 % (0.0-10.0) 12/02/17 13:51 Eos % (Auto) 0.7 % (0.0-4.0) 12/02/17 13:51 Baso % (Auto) 0.3 % (0.0-2.0) 12/02/17 13:51 Neut # (Auto) 6.1 K/uL (1.8-7.0) 12/02/17 13:51 Lymph # (Auto) 1.4 K/uL (1.0-4.3) 12/02/17 13:51 [place] # (Auto) 0.3 K/uL (0.0-0.8) 12/02/17 13:51 Eos # (Auto) 0.1 K/uL (0.0-0.7) 12/02/17 13:51 Baso # (Auto) 0.0 K/uL (0.0-0.2) 12/02/17 13:51 Sodium 141 mmol/l (132-148) 12/02/17 13:51 Potassium 4.5 MMOL/L (3.6-5.0) 12/02/17 13:51 Chloride 100 mmol/L (98-107) 12/02/17 13:51 Carbon Dioxide 28 mmol/L (22-30) 12/02/17 13:51 Anion Gap 18 (10-20) 12/02/17 13:51 BUN 15 mg/dl (9-20) 12/02/17 13:51 Creatinine 0.9 mg/dl (0.8-1.5) 12/02/17 13:51 Est GFR ( Amer) > 60 12/02/17 13:51 Est GFR (Non-Af Amer) > 60 12/02/17 13:51 POC Glucose (mg/dL) 154 mg/dL (65-110) H 12/04/17 05:19 Random Glucose 204 mg/dL (75-110) H 12/02/17 13:51 Hemoglobin A1c 8.0 % (4.2-6.5) H 12/03/17 04:20 Calcium 9.4 mg/dL (8.4-10.2) 12/02/17 13:51 Total Bilirubin 0.4 mg/dl (0.2-1.3) 12/02/17 13:51 AST 18 U/L (17-59) 12/02/17 13:51 ALT 31 U/L (21-72) 12/02/17 13:51 Alkaline Phosphatase 93 U/L (38-126) 12/02/17 13:51 Troponin I < 0.0120 ng/mL (0.00-0.120) 12/03/17 04:20 Total Protein 7.5 G/DL (6.3-8.2) 12/02/17 13:51 Albumin 4.3 g/dL (3.5-5.0) 12/02/17 13:51 Globulin 3.2 gm/dL (2.2-3.9) 12/02/17 13:51 Albumin/Globulin Ratio 1.4 (1.0-2.1) 12/02/17 13:51 Triglycerides 151 mg/DL (0-149) H 12/03/17 04:20 Cholesterol 175 mg/dL (0-199) 12/03/17 04:20 LDL Cholesterol Direct 122 mg/dL (0-129) 12/03/17 04:20 HDL Cholesterol 22 MG/DL (30-70) L 12/03/17 04:20 TSH 3rd Generation 1.18 mIU/ML (0.46-4.68) 12/03/17 04:20 - Hospital Course Hospital Course: 67 y/o man w/pmh of HTN, HLD, and NIDDM2 is admitted for uncontrolled hypertension. The patient's discharge was held yesterday due to persistently elevated BP. Medications were added to improve control and patient's BP has been stabilized. The patient has no complaints. Patient denies any headaches, chest pain, visual disturbances/changes, SOB, abdominal pain, nausea, vomiting, diarrhea, dysuria, or fever. The patient has been seen, examined, and deemed medically fit for discharge home. The patient is discharged w/ rosuvastatin, januvia, norvasc, hydralazine, and lopressor as new medications. The patient is to follow up w/ Dr. Coleman in 1 week. Discharge Exam - Head Exam Head Exam: ATRAUMATIC, NORMAL INSPECTION, NORMOCEPHALIC - Eye Exam Eye Exam: Normal appearance - ENT Exam ENT Exam: Mucous Membranes Moist - Neck Exam Neck exam: Full Rom - Respiratory Exam Respiratory Exam: Clear to PA & Lateral. absent: Accessory Muscle Use, Decreased Breath Sounds, Rales, Rhonchi, Wheezes, Respiratory Distress - Cardiovascular Exam Cardiovascular Exam: REGULAR RHYTHM. absent: Tachycardia - GI/Abdominal Exam GI & Abdominal Exam: Normal Bowel Sounds, Soft. absent: Distended, Tenderness - Extremities Exam Extremities exam: normal inspection - Neurological Exam Neurological exam: Alert, CN II-XII Intact, Normal Gait, Oriented x3 - Skin Skin Exam: Dry, Intact, Normal Color, Warm Discharge Plan - Discharge Medications Prescriptions: amLODIPine [Norvasc] 10 mg PO DAILY #30 tab Aspirin [Adult Aspirin] 81 mg PO DAILY #30 tablet. hydrALAZINE [Apresoline] 50 mg PO Q8 #90 tab Metoprolol Tartrate [Lopressor] 100 mg PO Q12 #90 tab Rosuvastatin Calcium 20 mg PO DAILY #30 tablet SITagliptin [Januvia] 100 mg PO DAILY #30 tab Zolpidem [Ambien] 5 mg PO DAILY #30 tab - Follow Up Plan Condition: STABLE Disposition: HOME/ ROUTINE Instructions: High Blood Pressure (DC), Controlling Your Blood Pressure Through Lifestyle Additional Instructions: hacer yesi con el doctor chad Coleman en lisset semana Referrals: Chad Coleman MD [Staff Provider] -
== END 2017-12-04 13:28 | disposition home or self-care (01) ==
LOC: H.ER 12:50 → H.ERHOLD 15:47 → H.TEL 18:43
PROVIDERS: ADMIT Family Medicine; ATTEND Family Medicine
DX: I16.0 Hypertensive urgency (principal); E11.9 Type 2 diabetes mellitus without complications; E78.5 Hyperlipidemia, unspecified; Z86.73 Personal history of transient ischemic attack (TIA), and cerebral infarction without residual deficits; F41.9 Anxiety disorder, unspecified

== ENCOUNTER 2017-12-08 12:09 | Emergency (ER) | payer MEDICAID ==
[2017-12-08 12:33] VITALS: BMI 29.0
[2017-12-08] MEDS ORDERED: Sodium Chloride 0.9% 500 ML IV STA (12:35)
--- NOTE | 2017-12-08 12:35 | ED PDOC ---
HPI: SOB/CHF/COPD Chief Complaint (Provider): Weakness/SOB History Per: Patient History/Exam Limitations: no limitations Onset/Duration Of Symptoms: Days (since yesterday) Current Symptoms Are (Timing): Still Present Severity: None <Gaviota Humphrey - Last Filed: 12/08/17 14:07> <Jason Warner - Last Filed: 12/08/17 14:59> Time Seen by Provider: 12/08/17 12:18 Additional Complaint(s): 67 y/o F with PMHx of HTN, HLD, DM presents to ED complaining of generalized weakness, and intermittent episodes of no exertional SOB since Friday morning. Patient had a hospital admission on 12/02/17 due to uncontrolled HTN, put on new medications during admission, and discharged on 12/04/17. Has been taking new medications since Friday. Denies chest pain, cough, fevers, chills, blurry vision, dizziness, LOC, tingling, numbness, or other associated complains. PMD: Chad Coleman. (Gaviota Humphrey) Supervising Attending Note <Gaviota Humphrey - Last Filed: 12/08/17 14:07> - Supervising Attending Note The Documented history was done by the: Physician [employer] Recausticizing Operator The documented physical exam was done by the: Physician Lime Kil[employer] And Recausticizing Operator The documented procedures were done by the: Physician Lime Kil[employer] And Recausticizing Operator - Attestation: I have personally seen and examined this patient.: Yes I have fully participated in the care of the patient.: Yes I have reviewed all pertinent clinical information, including history, physical exam and plan: Yes <Jason Warner - Last Filed: 12/08/17 14:59> - Notes: Notes:: Pt. with shortness of breath off and on and weakness all over. Discharge yesterday for htn issues by Dr. Fountain. (Jason Warner) Past Medical History - Medical History PMH: Anxiety, Diabetes, HTN, TIA Denies: Atrial Fibrillation, CAD, Cardia Arrhythmia, CHF, HIV, Hypercholesterolemia, Hyperthyroidism, Hypothyroidism, Mitral Valve Prolapse, Peripheral Edema, Chronic Kidney Disease - Surgical History Surgical History: Denies: Pacemaker - Family History Family History: States: Unknown Family Hx - Immunization History Hx Tetanus Toxoid Vaccination: No Hx Influenza Vaccination: No Hx Pneumococcal Vaccination: No <Gaviota Humphrey - Last Filed: 12/08/17 14:07> <Jason Warner - Last Filed: 12/08/17 14:59> Vital Signs: Last Vital Signs Temp 98 F 12/08/17 13:00 Pulse 82 12/08/17 13:00 Resp 18 12/08/17 13:00 BP 149/69 12/08/17 13:00 Pulse Ox 97 12/08/17 13:00 - Home Medications Home Medications: Ambulatory Orders Medication Instructions Recorded Valsartan/Hydrochlorothiazide 1 tab PO DAILY 12/02/17 [Diovan Hct 320-25 mg Tablet] Aspirin [Adult Aspirin] 81 mg PO DAILY #30 tablet. 12/03/17 MetFORMIN [glucoPHAGE] 1,000 mg PO BIDWM tab 12/03/17 Metoprolol Tartrate [Lopressor] 100 mg PO Q12 #90 tab 12/03/17 Rosuvastatin Calcium 20 mg PO DAILY #30 tablet 12/03/17 SITagliptin [Januvia] 100 mg PO DAILY #30 tab 12/03/17 Zolpidem [Ambien] 5 mg PO DAILY #30 tab 12/03/17 amLODIPine [Norvasc] 10 mg PO DAILY #30 tab 12/04/17 hydrALAZINE [Apresoline] 50 mg PO Q8 #90 tab 12/04/17 - Allergies Allergies/Adverse Reactions: Allergies Allergy/AdvReac Type Severity Reaction Status Date / Time No Known Allergies Allergy Verified 08/14/17 15:33 Curb-65 Severity Score - CURB-65 Severity Score Confusion: No Bun >19mg/dl (>7mmol/L): No Respiratory Rate greater than/equal to 30: No Systolic BP <90 or Diastolic BP less than/equal 60mmHg: No Age >64: Yes Curb-65 Score: 1 Percentage 30-day mortality: 2.7% <Gaviota Humphrey - Last Filed: 12/08/17 14:07> Wells Criteria for PE - Wells Criteria for Pulmonary Embolism Clinical Signs and Symptoms of DVT: No P.E is #1 Diagnosis, or Equally Likely: No Heart Rate >100: No Immobilization at least 3 days;Surgery previous 4 weeks: No Previous, objectively diagnosed PE or DVT: No Hemoptysis: No Malignancy w/treatment within 6 months, or palliative: No Total Score: 0 <Gaviota Humphrey - Last Filed: 12/08/17 14:07> Review of Systems ROS Statement: Except As Marked, All Systems Reviewed And Found Negative (as per HPI) <Gaviota Humphrey - Last Filed: 12/08/17 14:07> ROS Statement: Except As Marked, All Systems Reviewed And Found Negative Respiratory: Positive for: Shortness of Breath Neurological: Positive for: Weakness <Jason Warner M - Last Filed: 12/08/17 14:59> Physical Exam - Reviewed Nursing Documentation Reviewed: Yes Vital Signs Reviewed: Yes - Physical Exam Appears: Positive for: Non-toxic, No Acute Distress Head Exam: Positive for: ATRAUMATIC, NORMOCEPHALIC Skin: Positive for: Normal Color, Warm, Dry Eye Exam: Positive for: EOMI, PERRL. Negative for: Conjunctival injection ENT: Positive for: Normal ENT Inspection Neck: Positive for: Normal, Supple Cardiovascular/Chest: Positive for: Regular Rate, Rhythm. Negative for: Edema, Bradycardia, Tachycardia Respiratory: Positive for: Normal Breath Sounds. Negative for: Decreased Breath Sounds, Accessory Muscle Use, Crackles, Rales, Wheezing, Respiratory Distress Gastrointestinal/Abdominal: Positive for: Normal Exam, Bowel Sounds (normal and present), Soft. Negative for: Tenderness, Distended Back: Positive for: Normal Inspection. Negative for: L CVA Tenderness, R CVA Tenderness Neurologic/Psych: Positive for: Alert, Oriented. Negative for: Motor/Sensory Deficits, Aphasia, Facial Droop <Gaviota Humphrey - Last Filed: 12/08/17 14:07> - Physical Exam Cardiovascular/Chest: Positive for: Regular Rate, Rhythm Respiratory: Positive for: Normal Breath Sounds Gastrointestinal/Abdominal: Positive for: Soft. Negative for: Tenderness Neurologic/Psych: Positive for: Alert, telemarketer II-XII, Oriented. Negative for: Motor/Sensory Deficits, Aphasia, Facial Droop <Jason Warner M - Last Filed: 12/08/17 14:59> - Laboratory Results Result Diagrams: 12/08/17 13:11 12/08/17 13:11 <aGviota Humphrey - Last Filed: 12/08/17 14:07> - Laboratory Results Result Diagrams: 12/08/17 13:11 12/08/17 13:11 Interpretation Of Abn Labs: no acute - ECG ECG: Positive for: Interpreted By Me, Viewed By Me ECG Rhythm: Positive for: Sinus Rhythm (with pvcs), Nonspecific Changes - Radiology X-Ray: Read By Radiologist X-Ray Interpretation: No Acute Disease - CT Scan/US ct Other Rad Studies (CT/US): Read By Radiologist Other Rad Interpretation: no acute <Jason Warner - Last Filed: 12/08/17 14:59> - Progress ED Course And Treament: 1456: Pt. does not want to stay in the hospital for further evaluation and treatment of his weakness and shortness of breath. Is aaox3. Has capacity to make decisions. Aware of possible or decreased functioning from not being fully treated and evaluated. Will ama. (Jason Warner) Medical Decision Making <Gaviota Humphrey - Last Filed: 12/08/17 14:07> <Jason Warner - Last Filed: 12/08/17 14:59> Medical Decision Making: Weakness -CBC, CMP, coag panel -Head CT w/o contrast -IV fluids SOB -Pro-BNP -troponin I (Gaviota Humphrey) Disposition <Gaviota Humphrey - Last Filed: 12/08/17 14:07> - Patient ED Disposition Is Patient to be Admitted: No Counseled Patient/Family Regarding: Studies Performed, Diagnosis - Disposition Disposition: Against Medical Advice Disposition Time: 14:51 <Jason Warner - Last Filed: 12/08/17 14:59> - Clinical Impression Clinical Impression: Episode of generalized weakness, Dyspnea - Disposition Condition: FAIR Additional Instructions: You are going against medical advice. You should return soon as possible for further evaluation and further treatment for your chest pain and shortness of breath. You can or have decreased functioning from it. Va contra consejos mdicos. Debe regresar lo ms pronto posible para lisset evaluacin adicional y un tratamiento adicional para harris dolor de pecho y dificultad para respirar. Puede morir o afectar harris condicion fisica. Instructions: Weakness (ED), Shortness of Breath (Dyspnea) Print Language: THAI
[2017-12-08 13:18] VITALS: RESP 18; TEMP 98
[2017-12-08 13:19] LABS: BASO # 0.1 K/uL (0.0-0.2); BASO % 0.9 % (0.0-2.0); EOS # 0.1 K/uL (0.0-0.7); EOS % 1.3 % (0.0-4.0); LYMPH # 1.8 K/uL (1.0-4.3); LYMPH % 31.6 % (20.0-40.0); MEAN CELL VOLUME 78.1 fl (80.0-94.0); MEAN CORPUSCULAR HEMOGLOBIN 25.4 pg (27.0-31.0); MEAN CORPUSCULAR HGB CONC 32.5 g/dL (33.0-37.0); MEAN PLATELET VOLUME 9.8 fl (7.2-11.7); MONO # 0.5 K/uL (0.0-0.8); MONO % 8.4 % (0.0-10.0); NEUT # 3.3 K/uL (1.8-7.0); NEUT % 57.8 % (50.0-75.0); RBC 6.31 Mil/uL (4.40-5.90); RED CELL DISTRIBUTION WIDTH 14.6 % (11.5-14.5); WHITE BLOOD COUNT 5.6 K/uL (4.8-10.8)
[2017-12-08 13:24] LABS: PROTHROMBIN TIME 10.9 Seconds (9.8-13.1)
[2017-12-08 13:25] LABS: PARTIAL THROMBOPLASTIN TIME 31.5 Seconds (25.6-37.1)
--- NOTE | 2017-12-08 13:26 | RAD ---
HISTORY: The Dyspnea COMPARISON: Comparison made with chest radiograph 01/05/2017 FINDINGS: LUNGS: Low lung volumes, crowded bronchovascular markings and mild bibasilar atelectasis. The interstitial markings are also slightly increased and coarsened possibly due to are diminished low lung volumes however possibility of mild underlying changes of reactive/inflammatory airway disease or viral illness not excluded. PLEURA: No significant pleural effusion identified, no pneumothorax apparent. CARDIOVASCULAR: Heart size upper limits of normal. OSSEOUS STRUCTURES: No significant abnormalities. VISUALIZED UPPER ABDOMEN: Normal. OTHER FINDINGS: None. IMPRESSION: Low lung volumes, crowded bronchovascular markings and mild bibasilar atelectasis. The interstitial markings are also slightly increased and coarsened possibly due to are diminished low lung volumes however possibility of mild underlying changes of reactive/inflammatory airway disease or viral illness not excluded.
[2017-12-08 13:39] LABS: ALB/GLOB RATIO 1.2 (1.0-2.1); ALBUMIN 3.9 g/dL (3.5-5.0); ALT/SGPT 23 U/L (21-72); AST/SGOT 20 U/L (17-59); BLOOD UREA NITROGEN 22 mg/dl (9-20); CALCIUM 9.4 mg/dL (8.4-10.2); GFR AFRICAN-AMERICAN > 60; GFR NON-AFRICAN AMERICAN > 60
[2017-12-08 13:42] LABS: B-TYPE NATRIURETIC PEPTIDE 644 pg/ml (0-900)
--- NOTE | 2017-12-08 14:00 | CT ---
PROCEDURE: CT HEAD WITHOUT CONTRAST. HISTORY: headache COMPARISON: Noncontrast head CT 12/02/2017. TECHNIQUE: Axial computed tomography images were obtained through the head/brain without intravenous contrast. Radiation dose: Total exam DLP = 838.87 mGy-cm. This CT exam was performed using one or more of the following dose reduction techniques: Automated exposure control, adjustment of the mA and/or kV according to patient size, and/or use of iterative reconstruction technique. FINDINGS: HEMORRHAGE: No intracranial hemorrhage. BRAIN: Diffuse cerebral atrophy and chronic microangiopathy pattern are reiterated as well as solitary bilateral basal ganglia chronic lacunes and right thalamic chronic lacune. No interval mass effect or cortical edema is identified. No suspicious extra-axial collection. Falcine calcification again seen anteriorly and posterior fossa contents are stable and unremarkable appearing. VENTRICLES: Unremarkable. No hydrocephalus. CALVARIUM: Unremarkable. PARANASAL SINUSES: Unremarkable as visualized. No significant inflammatory changes. MASTOID AIR CELLS: Unremarkable as visualized. No inflammatory changes. OTHER FINDINGS: None. IMPRESSION: No definite interval acute intracranial findings by standard CT criteria. Mild age related neuro degenerative changes are stable. Chronic lacunes reiterated as discussed above.
[2017-12-08 16:45] VITALS: BP 139/72; PULSE 78; O2SAT 100
--- NOTE | 2017-12-09 08:55 | CARD ---
APPROVED REPORT EKG Measurement Heart [id number] <Conclusion> Sinus rhythm with occasional premature ventricular complexes Possible Left atrial enlargement Nonspecific T wave abnormality Abnormal ECG
== END 2017-12-08 16:44 | disposition left against medical advice (07) ==
LOC: H.ER 12:09
DX: R06.00 Dyspnea, unspecified (principal); R53.1 Weakness; E11.9 Type 2 diabetes mellitus without complications; E78.5 Hyperlipidemia, unspecified; F41.9 Anxiety disorder, unspecified; I10 Essential (primary) hypertension; J44.9 Chronic obstructive pulmonary disease, unspecified; Z79.82 Long term (current) use of aspirin; Z79.84 Long term (current) use of oral hypoglycemic drugs; Z86.73 Personal history of transient ischemic attack (TIA), and cerebral infarction without residual deficits
CPT/HCPCS: 70450; 71045; 80053; 82948; 83880; 84484; 85025; 85610; 85730; 93005; 99284; J7040